=== PATIENT | female | born 1990 | race African-American/Black ===

== ENCOUNTER 2016-09-06 18:08 | Emergency (ER) | payer OTHER ==
[~2016-09-06] VITALS: Ht 162.6 cm; Wt 97.5 kg
[~2016-09-06 18:08] MED LIST: DOXYCYCLINE 10100 MG PO
[2016-09-06 18:11] VITALS: BP 139/75
[2016-09-06] MEDS ORDERED: MOBIC15 MG PO (18:51)
[2016-09-06] MEDS ORDERED: PREDNISONE 20 M20 MG PO (18:51)
== END 2016-09-06 19:03 | disposition home or self-care (01) ==
LOC: ER 18:08
DX: G56.02 Carpal tunnel syndrome, left upper limb (principal)

== ENCOUNTER 2016-09-14 18:16 | Emergency (ER) | payer OTHER ==
[~2016-09-14] VITALS: Ht 157.5 cm; Wt 97.5 kg
[~2016-09-14 18:16] MED LIST changes: +MOBIC15 MG PO; +PREDNISONE 20 M20 MG PO
[2016-09-14 19:29] LABS: HEMATOCRIT 41.8 % (37.0-47.0); HEMOGLOBIN 13.6 gm/dL (12.0-15.0); MCH 23.6 pg (26.0-34.0); MCHC 32.4 g/dL (28.0-37.0); MCV 72.9 fL (80.0-100.0); RBC 5.74 mil/uL (4.20-5.00); WBC 9.1 thou/uL (4.0-11.0)
[2016-09-14] MEDS ORDERED: PHENERGAN 25 MG25 M1 PO (20:23)
[2016-09-14 20:26] LABS: CALCIUM 8.5 mg/dL (8.5-10.1); CREATININE 0.9 mg/dL (0.6-1.3); POTASSIUM 3.4 mmol/L (3.5-5.1)
[2016-09-14 20:54] LABS: URINE BILIRUBIN NEGATIVE (Negative); URINE BLOOD NEGATIVE (Negative); URINE COLOR YELLOW; URINE GLUCOSE-RANDOM* NEGATIVE (Negative); URINE KETONES NEGATIVE (Negative); URINE NITRITE NEGATIVE (Negative); URINE PROTEIN (DIPSTICK) NEGATIVE (Negative); URINE UROBILINOGEN 0.2 E.U./dl (0.2-1.0)
[2016-09-14 21:04] VITALS: BP 121/80
[2016-09-14] MEDS ORDERED: LEVSIN0.125 MG PO (21:05)
== END 2016-09-14 21:14 | disposition home or self-care (01) ==
LOC: ER 18:16
PROVIDERS: Physician Assistant
DX: R11.2 Nausea with vomiting, unspecified (principal); R19.7 Diarrhea, unspecified

== ENCOUNTER 2017-02-20 08:06 | Emergency (ER) | payer BC, OTHER ==
[~2017-02-20] VITALS: Ht 162.6 cm; Wt 97.5 kg
[~2017-02-20 08:06] MED LIST changes: +LEVSIN0.125 MG PO; +PHENERGAN 25 MG25 M1 PO
[2017-02-20 08:07] VITALS: BP 136/86
[2017-02-20] MEDS ORDERED: AMOXICILLIN 50500 M1 PO (08:46)
== END 2017-02-20 09:03 | disposition home or self-care (01) ==
LOC: ER 08:06
DX: J02.0 Streptococcal pharyngitis (principal)

== ENCOUNTER 2018-07-08 07:58 | Emergency (ER) | payer BC, OTHER ==
[~2018-07-08] VITALS: Ht 162.6 cm; Wt 104.3 kg
[~2018-07-08 07:58] MED LIST changes: +AMOXICILLIN 50500 M1 PO
[2018-07-08 09:16] VITALS: BP 111/68
== END 2018-07-08 09:17 | disposition home or self-care (01) ==
LOC: ER 07:58
DX: J02.0 Streptococcal pharyngitis (principal)

== ENCOUNTER 2018-07-29 17:25 | Emergency (ER) | payer BC, OTHER ==
[~2018-07-29] VITALS: Ht 162.6 cm; Wt 104.3 kg
[2018-07-29] MEDS ORDERED: BACTRIM DS TAB1 EACH PO (19:11)
[2018-07-29 19:34] VITALS: BP 129/87
== END 2018-07-29 19:34 | disposition home or self-care (01) ==
LOC: ER 17:25
DX: L02.11 Cutaneous abscess of neck (principal); F17.210 Nicotine dependence, cigarettes, uncomplicated

== ENCOUNTER 2019-01-29 14:57 | Emergency (ER) | payer OTHER ==
[~2019-01-29] VITALS: Ht 162.6 cm; Wt 104.3 kg
[~2019-01-29 14:57] MED LIST changes: +BACTRIM DS TAB1 EACH PO
[2019-01-29 15:15] LABS: URINE BILIRUBIN NEGATIVE (Negative); URINE BLOOD 1+ (Negative); URINE CLARITY CLEAR; URINE COLOR YELLOW; URINE GLUCOSE-RANDOM* NEGATIVE (Negative); URINE KETONES NEGATIVE (Negative); URINE LEUKOCYTES 2+ (Negative); URINE NITRITE NEGATIVE (Negative); URINE PROTEIN (DIPSTICK) TRACE (Negative); URINE SPECIFIC GRAVITY >= 1.030 (1.005-1.035)
[2019-01-29 15:22] LABS: AMORPHOUS URATES Many /LPF (None Seen); BACTERIA 1-9 Few /HPF (None Seen); CASTS None Seen /LPF (None Seen); MUCUS 4-6 Moderate strn/LPF (None Seen); SQUAMOUS >10 Many /LPF (0-3); URINE RBC 3-10 Few /HPF (0-2); URINE WBC >25 Many /HPF (0-5); WBC CLUMPS Few (None Seen)
[2019-01-29] MEDS ORDERED: MACROBID 100 M100 M2 PO (15:43)
[2019-01-29 16:29] VITALS: BP 131/69
== END 2019-01-29 16:29 | disposition home or self-care (01) ==
LOC: ER 14:57
PROVIDERS: Emergency Medicine
DX: N30.01 Acute cystitis with hematuria (principal); Z88.1 Allergy status to other antibiotic agents

== ENCOUNTER 2019-02-12 17:39 | Emergency (ER) | payer OTHER ==
[~2019-02-12] VITALS: Ht 162.6 cm; Wt 97.5 kg
[~2019-02-12 17:39] MED LIST changes: +MACROBID 100 M100 M2 PO
[2019-02-12 17:40] VITALS: BP 119/79
[2019-02-12 17:56] LABS: URINE BILIRUBIN NEGATIVE (Negative); URINE BLOOD TRACE (Negative); URINE CLARITY CLEAR; URINE COLOR YELLOW; URINE GLUCOSE-RANDOM* NEGATIVE (Negative); URINE KETONES NEGATIVE (Negative); URINE NITRITE-REFLEX NEGATIVE (Negative); URINE PROTEIN (DIPSTICK) NEGATIVE (Negative); URINE SPECIFIC GRAVITY 1.025 (1.005-1.035); URINE UROBILINOGEN 0.2 E.U./dl (0.2-1.0)
[2019-02-12 17:57] LABS: URINE LEUKOCYTES-REFLEX 3+ (Negative)
[2019-02-12 18:03] LABS: BACTERIA-REFLEX None Seen /HPF (None Seen); CASTS None Seen /LPF (None Seen); CRYSTALS None Seen /LPF (None Seen); MUCUS 4-6 Moderate strn/LPF (None Seen); SQUAMOUS 4-10 Moderate /LPF (0-3); URINE RBC 0-2 Rare /HPF (0-2); URINE WBC-REFLEX 6-15 Few /HPF (0-5); YEAST-REFLEX Present (None Seen)
[2019-02-12] MEDS ORDERED: DIFLUCAN200 MG PO (18:34)
[2019-02-12] MEDS ORDERED: KEFLEX500 M1 PO (18:34)
== END 2019-02-12 18:37 | disposition home or self-care (01) ==
LOC: ER 17:39
PROVIDERS: Nurse Practitioner
DX: N39.0 Urinary tract infection, site not specified (principal); B37.9 Candidiasis, unspecified

== ENCOUNTER 2019-06-19 18:25 | Emergency (ER) | payer OTHER ==
[~2019-06-19] VITALS: Ht 162.6 cm; Wt 101.2 kg
[~2019-06-19 18:25] MED LIST changes: +DIFLUCAN200 MG PO; +KEFLEX500 M1 PO
[2019-06-19] MEDS ORDERED: IBUPROFEN 600600 M1 PO (21:29)
[2019-06-19] MEDS ORDERED: SUDOGEST30 MG PO (21:29)
[2019-06-19 21:36] VITALS: BP 146/94
== END 2019-06-19 21:37 | disposition home or self-care (01) ==
LOC: ER 18:25
DX: J06.9 Acute upper respiratory infection, unspecified (principal); R51 Headache

== ENCOUNTER 2019-10-26 06:19 | Emergency (ER) | payer OTHER ==
[~2019-10-26] VITALS: Ht 162.6 cm; Wt 102.1 kg
[~2019-10-26 06:19] MED LIST changes: +IBUPROFEN 600600 M1 PO; +SUDOGEST30 MG PO
[2019-10-26] MEDS ORDERED: FLAGYL 250 MG250 MG (06:26)
[2019-10-26 06:55] LABS: URINE BILIRUBIN NEGATIVE (Negative); URINE BLOOD NEGATIVE (Negative); URINE CLARITY CLEAR; URINE COLOR YELLOW; URINE GLUCOSE-RANDOM* NEGATIVE (Negative); URINE KETONES NEGATIVE (Negative); URINE LEUKOCYTES-REFLEX 1+ (Negative); URINE NITRITE-REFLEX NEGATIVE (Negative); URINE PROTEIN (DIPSTICK) NEGATIVE (Negative); URINE SPECIFIC GRAVITY >= 1.030 (1.005-1.035); URINE UROBILINOGEN 0.2 E.U./dl (0.2-1.0)
[2019-10-26 07:04] LABS: CASTS None Seen /LPF (None Seen); MUCUS >6 Heavy strn/LPF (None Seen); SQUAMOUS >10 Many /LPF (0-3); URINE RBC 0-2 Rare /HPF (0-2); URINE WBC-REFLEX 0-5 Rare /HPF (0-5)
[2019-10-26 07:05] LABS: BACTERIA-REFLEX None Seen /HPF (None Seen); CRYSTALS None Seen /LPF (None Seen)
[2019-10-26] MEDS ORDERED: DIFLUCAN150 MG PO ×2 (08:00→08:14)
[2019-10-26 08:09] VITALS: BP 128/76
== END 2019-10-26 08:09 | disposition home or self-care (01) ==
LOC: ER 06:19
PROVIDERS: Emergency Medicine Emergency Medical Services
DX: N89.8 Other specified noninflammatory disorders of vagina (principal); L29.2 Pruritus vulvae; Z79.899 Other long term (current) drug therapy

== ENCOUNTER 2020-02-10 16:23 | Emergency (ER) | payer OTHER ==
[~2020-02-10] VITALS: Ht 162.6 cm; Wt 112.0 kg
[2020-02-10 16:23] VITALS: BP 142/81
[~2020-02-10 16:23] MED LIST changes: +DIFLUCAN150 MG PO; +FLAGYL 250 MG250 MG
== END 2020-02-10 19:16 | disposition home or self-care (01) ==
LOC: ER 16:23
DX: S90.31XA Contusion of right foot, initial encounter (principal); M25.571 Pain in right ankle and joints of right foot; W01.0XXA Fall on same level from slipping, tripping and stumbling without subsequent striking against object, initial encounter; Y93.89 Activity, other specified; Y92.89 Other specified places as the place of occurrence of the external cause; Y99.0 Civilian activity done for income or pay

== ENCOUNTER 2021-03-18 17:16 | Emergency (ER) | payer OTHER ==
[~2021-03-18] VITALS: Ht 162.6 cm; Wt 108.9 kg
[2021-03-18 17:17] VITALS: BP 144/64
[2021-03-18] MEDS ORDERED: ERYTHROMYCIN E3.5 G2 OPHTHALMIC ×2 (17:59)
== END 2021-03-18 18:07 | disposition home or self-care (01) ==
LOC: ER 17:16
DX: S05.02XA Injury of conjunctiva and corneal abrasion without foreign body, left eye, initial encounter (principal); W22.8XXA Striking against or struck by other objects, initial encounter; Y93.61 Activity, american tackle football; Y92.89 Other specified places as the place of occurrence of the external cause; Y99.8 Other external cause status